=== PATIENT | male | born 1965 | race African-American/Black ===

== ENCOUNTER 2017-09-10 00:08 | Inpatient (IN) ==
[2017-09-10] MEDS ORDERED: PROMETHAZINE 25 MG TABLET PO PRN (00:14)
[2017-09-10] MEDS ORDERED: ONDANSETRON 4 MG/2 ML VIAL IV PRN (00:14)
[2017-09-10] MEDS ORDERED: ALUM/MAG/SIMETH/LIDO VISC 1:1 30 ML BOTTLE PO ONE (03:16)
[2017-09-10] MEDS: SODIUM CHLORIDE 0.9% 1,000 ML IV SCH ×2 (04:05→15:24)
[2017-09-10] MEDS: ACETAMINOPHEN 325 MG TABLET PO PRN ×3 (04:08→21:11)
[2017-09-10] MEDS: CIPROFLOXACIN INJ 400 MG in PREMIX 1 EACH IV SCH ×2 (04:09→15:24)
[2017-09-10] MEDS: LORazepam 2 MG/1 ML VIAL IV PRN (04:25)
[2017-09-10] MEDS ORDERED: ACETAMINOPHEN 650 MG SUPP RECTAL PRN (04:26)
[2017-09-10 05:22] LABS: Basophils % 0.3 % (0.0-0.8); Eosinophils # 0.5 10*3/uL (0.0-0.87); Eosinophils % 13.3 % (0.00-10.9); Hematocrit 32.2 VOL% (42.0-52.0); Hemoglobin 11.2 GM/DL (14.0-18.0); Immature Granulocytes % 0.6 %; Immature Granulocytes Absolute 0.02 #; Lymphocytes # 0.1 10*3/uL (1.4-4.0); Lymphocytes % 2.8 % (21.2-54.2); Mean Corpuscular HGB Conc 34.8 GM/DL (32-36); Mean Corpuscular Hemoglobin 32 PG (27-34); Mean Platelet Volume 9.5 FL (9.6-12.0); Monocytes # 0.1 10*3/uL (0.11-0.8); Monocytes % 2.8 % (1.7-12.7); Neutrophils # 2.8 10*3/uL (1.4-7.4); Neutrophils % 80.2 % (38.7-73.9); Platelet Count 109 T/CUMM (130-400); Red Blood Count 3.54 MC/CUMM (3.8-5.5); Red Cell Distribution Width 14.2 % (9.3-17.3); White Blood Count 3.5 T/CUMM (4-12)
[2017-09-10] MEDS ORDERED: KETOROLAC 30 MG/1 ML VIAL IM STA (05:36)
[2017-09-10 05:53] LABS: Troponin I Only 0.037 NG/ML (0.00-0.045)
[2017-09-10] MEDS ORDERED: MAGNESIUM OXIDE 400 MG TABLET PO ONE (06:03)
[2017-09-10 06:06] LABS: Albumin 2.7 G/DL (3.4-5.0); Bilirubin,Total 2.6 MG/DL (0.2-1.0); Calcium 8.3 MG/DL (8.5-10.1); Osmolality,Calculated 271.2 MOS/KG (273-304); Potassium 3.5 MMOL/L (3.5-5.1); Total Protein 6.6 G/DL (6.4-8.3)
[2017-09-10 06:09] LABS: Band Neutrophils 23 % (0-10); Hypochromasia 1+; Lymphocytes 5 % (20-55); Metamyelocytes 1 %; Microcytosis Slight; Myelocytes 1 %; Ovalocytes Slight; Platelet Estimate Decreased; Segmented Neutrophils 68 % (50-85); Total Cells Counted 100
[2017-09-10 06:10] LABS: Giant Platelets Few
[2017-09-10 07:53] LABS: Apearance,Urine CLOUDY (Clear); Bilirubin,Urine Negative (Negative); Blood, Urine Large mg/dL (Negative); Glucose,Urine (UA) Negative (Negative); Ketones,Urine 5 mg/dL (Negative); Nitrite,Urine Negative (Negative); Protein,Urine 100 MG/DL; RBC,Urine 15 /HPF (0-4); Squamous Epithelial Cell,Urine Occasional /HPF (0-10); Urine Color Yellow (Yellow); Urine Specific Gravity 1.008 (1.001-1.035); Urine Urobilinogen < 2.0 EU/DL (0.2-1.0); WBC,Urine 290 /HPF (0-6)
[2017-09-10] MEDS: hydroCHLOROthiazide 12.5 MG CAPSULE PO SCH (08:31)
[2017-09-10] MEDS: FOLIC ACID 1 MG TABLET PO SCH (08:34)
[2017-09-10] MEDS: PANTOPRAZOLE 40 MG TABLET PO SCH (08:34)
[2017-09-10] MEDS: THIAMINE 100 MG TABLET PO SCH (08:34)
[2017-09-10] MEDS: MULTIVITAMIN (CENTRUM) TABLET PO SCH (08:34)
[2017-09-10] MEDS ORDERED: amLODIPine 5 MG TABLET PO SCH (09:00)
[2017-09-10 09:37] LABS: Barbiturates Screen,Urine Negative (Negative); Benzodiazepines Screen,Urine Negative (Negative); Cannabinoid Screen,Urine Positive (Negative); Opiate Screen,Urine Negative (Negative); Phencyclidine Screen,Urine Negative (Negative)
[2017-09-10 09:42] LABS: Hepatitis A Ab IgM Quant 0.16 Index; Hepatitis A Ab IgM Result Negative (Negative); Hepatitis B Core IgM Quant 0.17 Index; Hepatitis B Core IgM Result Negative (Negative); Hepatitis B Surface Ag Quant < 0.10 Index; Hepatitis B Surface Ag Result Negative (Negative); Hepatitis C Virus Ab Result Negative (Negative)
[2017-09-10] MEDS: POTASSIUM CHLORIDE 20 MEQ TABLET PO SCH (12:18)
[2017-09-10] MEDS: MAGNESIUM OXIDE 400 MG TABLET PO SCH ×2 (15:24→21:12)
[2017-09-10 16:15] LABS: Troponin I Only 0.126 NG/ML (0.00-0.045)
[2017-09-10 18:21] LABS: Troponin I Only 0.121 NG/ML (0.00-0.045)
[2017-09-10] MEDS ORDERED: SODIUM CHLORIDE 0.9% 500 ML IV ONE ×2 (21:26→22:22)
[2017-09-10 21:58] LABS: Troponin I Only 0.157 NG/ML (0.00-0.045)
[2017-09-10] MEDS ORDERED: SODIUM CHLORIDE 0.9% 1,000 ML IV SCH (22:00)
[2017-09-10] MEDS: PIPERACILLIN/TAZOBACTAM 3,375 MG in SODIUM CHLORIDE 0.9% 100 ML IV SCH (23:35)
[2017-09-11] MEDS: SODIUM CHLORIDE 0.9% 1,000 ML IV SCH ×7 (00:20→23:15)
[2017-09-11] MEDS: NOREPINEPHRINE 8 MG in SODIUM CHLORIDE 0.9% 242 ML IV SCH ×3 (00:40→21:26)
[2017-09-11] MEDS: CIPROFLOXACIN INJ 400 MG in PREMIX 1 EACH IV SCH ×2 (04:22→17:04)
[2017-09-11 05:01] LABS: Basophils % 0.1 % (0.0-0.8); Hematocrit 29.9 VOL% (42.0-52.0); Hemoglobin 10.9 GM/DL (14.0-18.0); Immature Granulocytes % 10.1 %; Lymphocytes # 0.8 10*3/uL (1.4-4.0); Lymphocytes % 3.6 % (21.2-54.2); Mean Corpuscular HGB Conc 36.5 GM/DL (32-36); Mean Corpuscular Hemoglobin 32 PG (27-34); Mean Corpuscular Volume 88.2 FL (87-102); Mean Platelet Volume 10.4 FL (9.6-12.0); Monocytes # 1.9 10*3/uL (0.11-0.8); Monocytes % 8.2 % (1.7-12.7); Neutrophils # 17.7 10*3/uL (1.4-7.4); Platelet Count 68 T/CUMM (130-400); Red Blood Count 3.39 MC/CUMM (3.8-5.5); Red Cell Distribution Width 14.6 % (9.3-17.3); White Blood Count 22.7 T/CUMM (4-12)
[2017-09-11] MEDS ORDERED: KETOROLAC 15 MG/1 ML VIAL IV ONE (05:02)
[2017-09-11 05:29] LABS: Risk Ratio 4.75; VLDL CHOLESTEROL 40.6 MG/DL
[2017-09-11 05:31] LABS: Band Neutrophils 10 % (0-10); Burr Cells Slight; Giant Platelets Few; Hypochromasia Slight; Lymphocytes 8 % (20-55); Microcytosis Slight; Platelet Estimate Decreased; Segmented Neutrophils 74 % (50-85); Total Cells Counted 100
[2017-09-11 05:37] LABS: Albumin 2.5 G/DL (3.4-5.0); Bilirubin,Total 3.6 MG/DL (0.2-1.0); Calcium 7.5 MG/DL (8.5-10.1); Potassium 4.2 MMOL/L (3.5-5.1); Total Protein 5.9 G/DL (6.4-8.3)
[2017-09-11] MEDS ORDERED: DEXTROSE 50% 25 GM/50 ML VIAL IV PRN (06:29)
[2017-09-11] MEDS ORDERED: DEXTROSE 50% 25 GM/50 ML VIAL IV ONE (06:31)
[2017-09-11] MEDS ORDERED: HYDROmorphone 2 MG/1 ML VIAL IV ONE ×2 (07:25→08:05)
[2017-09-11] MEDS: PIPERACILLIN/TAZOBACTAM 3,375 MG in SODIUM CHLORIDE 0.9% 100 ML IV SCH ×3 (09:20→23:20)
[2017-09-11] MEDS: POTASSIUM CHLORIDE 20 MEQ TABLET PO SCH (16:00)
[2017-09-11] MEDS: MAGNESIUM OXIDE 400 MG TABLET PO SCH ×3 (16:00→21:05)
[2017-09-11] MEDS: TAMSULOSIN 0.4 MG CAPSULE PO SCH (16:00)
[2017-09-11] MEDS: FOLIC ACID 1 MG TABLET PO SCH (16:00)
[2017-09-11] MEDS: MULTIVITAMIN (CENTRUM) TABLET PO SCH (16:00)
[2017-09-11] MEDS: PANTOPRAZOLE 40 MG TABLET PO SCH (16:00)
[2017-09-11] MEDS: hydroCHLOROthiazide 12.5 MG CAPSULE PO SCH (16:00)
[2017-09-11] MEDS: THIAMINE 100 MG TABLET PO SCH (16:00)
[2017-09-11] MEDS ORDERED: SODIUM CHLORIDE 0.9% 500 ML IV ONE (16:18)
[2017-09-11] MEDS: traMADol 50 MG TABLET PO PRN (18:13)
[2017-09-11] MEDS: LORazepam 2 MG/1 ML VIAL IV PRN (21:15)
[2017-09-12] MEDS: SODIUM CHLORIDE 0.9% 1,000 ML IV SCH ×6 (04:01→19:00)
[2017-09-12] MEDS: CIPROFLOXACIN INJ 400 MG in PREMIX 1 EACH IV SCH ×2 (04:38→16:36)
[2017-09-12 05:56] LABS: Basophils # 0.2 10*3/uL (0.0-0.2); Basophils % 0.9 % (0.0-0.8); Eosinophils # 0.1 10*3/uL (0.0-0.87); Eosinophils % 0.4 % (0.00-10.9); Hematocrit 29.7 VOL% (42.0-52.0); Hemoglobin 10.4 GM/DL (14.0-18.0); Immature Granulocytes % 0.7 %; Immature Granulocytes Absolute 0.14 #; Lymphocytes # 1.1 10*3/uL (1.4-4.0); Lymphocytes % 5.7 % (21.2-54.2); Mean Corpuscular Hemoglobin 32 PG (27-34); Mean Corpuscular Volume 91.1 FL (87-102); Mean Platelet Volume 12.1 FL (9.6-12.0); Monocytes # 1.2 10*3/uL (0.11-0.8); Monocytes % 6.1 % (1.7-12.7); Neutrophils # 16.9 10*3/uL (1.4-7.4); Neutrophils % 86.2 % (38.7-73.9); Red Blood Count 3.26 MC/CUMM (3.8-5.5); Red Cell Distribution Width 15.4 % (9.3-17.3); White Blood Count 19.6 T/CUMM (4-12)
[2017-09-12 05:57] LABS: Platelet Count 64 T/CUMM (130-400)
[2017-09-12 06:21] LABS: Calcium 6.9 MG/DL (8.5-10.1); Osmolality,Calculated 290.5 MOS/KG (273-304); Potassium 4.7 MMOL/L (3.5-5.1)
[2017-09-12 06:26] LABS: Calcium 6.9 MG/DL (8.5-10.1); Osmolality,Calculated 290.5 MOS/KG (273-304); Potassium 4.6 MMOL/L (3.5-5.1); Total Protein 5.3 G/DL (6.4-8.3)
[2017-09-12] MEDS: NOREPINEPHRINE 8 MG in SODIUM CHLORIDE 0.9% 242 ML IV SCH (06:51)
[2017-09-12 07:42] LABS: Band Neutrophils 31 % (0-10); Burr Cells 2+; Eosinophils 1 % (0-10); Lymphocytes 8 % (20-55); Segmented Neutrophils 54 % (50-85); Total Cells Counted 100
[2017-09-12 07:43] LABS: Hypochromasia 2+; Platelet Estimate Decreased
[2017-09-12] MEDS: PIPERACILLIN/TAZOBACTAM 3,375 MG in SODIUM CHLORIDE 0.9% 100 ML IV SCH ×2 (08:11→16:36)
[2017-09-12] MEDS ORDERED: LIDOCAINE 2% 5 ML VIAL ONE (12:56)
[2017-09-12] MEDS ORDERED: ETOMIDATE 20 MG/10 ML VIAL IV ONE (12:56)
[2017-09-12] MEDS ORDERED: MIDAZOLAM 2 MG/2 ML VIAL ONE (13:17)
[2017-09-12] MEDS: LORazepam 2 MG/1 ML VIAL IV PRN ×2 (14:20→17:20)
[2017-09-12] MEDS: POTASSIUM CHLORIDE 20 MEQ TABLET PO SCH (14:57)
[2017-09-12] MEDS: FOLIC ACID 1 MG TABLET PO SCH (14:58)
[2017-09-12] MEDS: PANTOPRAZOLE 40 MG TABLET PO SCH (14:58)
[2017-09-12] MEDS: MAGNESIUM OXIDE 400 MG TABLET PO SCH ×3 (14:58→21:51)
[2017-09-12] MEDS: MULTIVITAMIN (CENTRUM) TABLET PO SCH (14:58)
[2017-09-12] MEDS: THIAMINE 100 MG TABLET PO SCH (14:58)
[2017-09-12] MEDS: TAMSULOSIN 0.4 MG CAPSULE PO SCH (14:58)
[2017-09-12] MEDS: hydroCHLOROthiazide 12.5 MG CAPSULE PO SCH (15:00)
[2017-09-12] MEDS ORDERED: LORazepam 2 MG/1 ML VIAL IV ONE (18:15)
[2017-09-13] MEDS: PIPERACILLIN/TAZOBACTAM 3,375 MG in SODIUM CHLORIDE 0.9% 100 ML IV SCH ×3 (00:05→15:57)
[2017-09-13] MEDS: LORazepam 2 MG/1 ML VIAL IV PRN ×5 (00:31→19:17)
[2017-09-13] MEDS: NOREPINEPHRINE 8 MG in SODIUM CHLORIDE 0.9% 242 ML IV SCH (00:34)
[2017-09-13] MEDS: SODIUM CHLORIDE 0.9% 1,000 ML IV SCH ×4 (05:00→22:00)
[2017-09-13 05:12] LABS: Basophils # 0.1 10*3/uL (0.0-0.2); Basophils % 0.5 % (0.0-0.8); Eosinophils # 0.2 10*3/uL (0.0-0.87); Eosinophils % 1.3 % (0.00-10.9); Hematocrit 28.9 VOL% (42.0-52.0); Hemoglobin 10.1 GM/DL (14.0-18.0); Immature Granulocytes % 1.6 %; Immature Granulocytes Absolute 0.27 #; Lymphocytes # 1.6 10*3/uL (1.4-4.0); Lymphocytes % 9.1 % (21.2-54.2); Mean Corpuscular HGB Conc 34.9 GM/DL (32-36); Mean Corpuscular Hemoglobin 32 PG (27-34); Mean Corpuscular Volume 90.6 FL (87-102); Mean Platelet Volume 11.5 FL (9.6-12.0); Monocytes # 1.4 10*3/uL (0.11-0.8); Monocytes % 7.9 % (1.7-12.7); Neutrophils # 13.9 10*3/uL (1.4-7.4); Neutrophils % 79.6 % (38.7-73.9); Platelet Count 78 T/CUMM (130-400); Red Blood Count 3.19 MC/CUMM (3.8-5.5); Red Cell Distribution Width 15.4 % (9.3-17.3); White Blood Count 17.4 T/CUMM (4-12)
[2017-09-13 05:44] LABS: Magnesium 2.1 MG/DL (1.8-2.4); Potassium 4.7 MMOL/L (3.5-5.1)
[2017-09-13 05:47] LABS: Albumin 1.9 G/DL (3.4-5.0); Bilirubin,Total 3.6 MG/DL (0.2-1.0); Calcium 7.8 MG/DL (8.5-10.1); Potassium 4.7 MMOL/L (3.5-5.1); Total Protein 5.2 G/DL (6.4-8.3)
[2017-09-13 06:14] LABS: Band Neutrophils 4 % (0-10); Lymphocytes 9 % (20-55); Platelet Estimate Decreased; Segmented Neutrophils 79 % (50-85); Total Cells Counted 100
[2017-09-13 06:15] LABS: Hypochromasia 1+; Microcytosis Slight
[2017-09-13] MEDS: THIAMINE 100 MG TABLET PO SCH (08:08)
[2017-09-13] MEDS: hydroCHLOROthiazide 12.5 MG CAPSULE PO SCH (08:08)
[2017-09-13] MEDS: POTASSIUM CHLORIDE 20 MEQ TABLET PO SCH (08:08)
[2017-09-13] MEDS: TAMSULOSIN 0.4 MG CAPSULE PO SCH (08:08)
[2017-09-13] MEDS: PANTOPRAZOLE 40 MG TABLET PO SCH (08:08)
[2017-09-13] MEDS: MAGNESIUM OXIDE 400 MG TABLET PO SCH ×3 (08:09→20:52)
[2017-09-13] MEDS: MULTIVITAMIN (CENTRUM) TABLET PO SCH (08:09)
[2017-09-13] MEDS: FOLIC ACID 1 MG TABLET PO SCH (08:09)
[2017-09-13] MEDS ORDERED: DIAZEPAM 10 MG/2 ML SYRINGE IV PRN (20:27)
[2017-09-13] MEDS: DIAZEPAM 10 MG/2 ML SYRINGE IV PRN (20:47)
[2017-09-14] MEDS: NOREPINEPHRINE 8 MG in SODIUM CHLORIDE 0.9% 242 ML IV SCH ×2 (00:48→23:51)
[2017-09-14] MEDS: PIPERACILLIN/TAZOBACTAM 3,375 MG in SODIUM CHLORIDE 0.9% 100 ML IV SCH ×4 (00:48→23:29)
[2017-09-14] MEDS: LORazepam 2 MG/1 ML VIAL IV PRN ×4 (01:26→21:05)
[2017-09-14] MEDS: DIAZEPAM 10 MG/2 ML SYRINGE IV PRN ×4 (01:42→23:29)
[2017-09-14 05:22] LABS: Calcium 8.6 MG/DL (8.5-10.1); Osmolality,Calculated 294.8 MOS/KG (273-304); Potassium 4.7 MMOL/L (3.5-5.1)
[2017-09-14] MEDS: SODIUM CHLORIDE 0.9% 1,000 ML IV SCH ×2 (08:00→22:23)
[2017-09-14] MEDS ORDERED: amLODIPine 5 MG TABLET PO SCH (09:00)
[2017-09-14] MEDS: hydroCHLOROthiazide 12.5 MG CAPSULE PO SCH (11:25)
[2017-09-14] MEDS: THIAMINE 100 MG TABLET PO SCH (11:25)
[2017-09-14] MEDS: TAMSULOSIN 0.4 MG CAPSULE PO SCH (11:26)
[2017-09-14] MEDS: MULTIVITAMIN (CENTRUM) TABLET PO SCH (11:26)
[2017-09-14] MEDS: PANTOPRAZOLE 40 MG TABLET PO SCH (11:26)
[2017-09-14] MEDS: POTASSIUM CHLORIDE 20 MEQ TABLET PO SCH (11:26)
[2017-09-14] MEDS: MAGNESIUM OXIDE 400 MG TABLET PO SCH ×4 (11:26→21:08)
[2017-09-14] MEDS: FOLIC ACID 1 MG TABLET PO SCH (11:26)
[2017-09-15] MEDS: LORazepam 2 MG/1 ML VIAL IV PRN (00:50)
[2017-09-15 07:37] LABS: Basophils # 0.1 10*3/uL (0.0-0.2); Basophils % 0.6 % (0.0-0.8); Eosinophils # 0.2 10*3/uL (0.0-0.87); Hematocrit 36.2 VOL% (42.0-52.0); Hemoglobin 12.8 GM/DL (14.0-18.0); Lymphocytes # 1.9 10*3/uL (1.4-4.0); Lymphocytes % 9.6 % (21.2-54.2); Mean Corpuscular HGB Conc 35.4 GM/DL (32-36); Mean Corpuscular Hemoglobin 31 PG (27-34); Mean Corpuscular Volume 88.1 FL (87-102); Mean Platelet Volume 11.7 FL (9.6-12.0); Monocytes # 2.8 10*3/uL (0.11-0.8); Monocytes % 13.9 % (1.7-12.7); Neutrophils # 14.5 10*3/uL (1.4-7.4); Neutrophils % 72.9 % (38.7-73.9); Platelet Count 145 T/CUMM (130-400); Red Blood Count 4.11 MC/CUMM (3.8-5.5); Red Cell Distribution Width 15.2 % (9.3-17.3)
[2017-09-15 07:43] LABS: Calcium 9.2 MG/DL (8.5-10.1); Magnesium 1.2 MG/DL (1.8-2.4); Osmolality,Calculated 294.7 MOS/KG (273-304); Potassium 4.3 MMOL/L (3.5-5.1)
[2017-09-15 07:53] LABS: Calcium 9.1 MG/DL (8.5-10.1); Osmolality,Calculated 292.8 MOS/KG (273-304); Potassium 4.3 MMOL/L (3.5-5.1)
[2017-09-15 08:11] LABS: Eosinophils 2 % (0-10); Lymphocytes 12 % (20-55); Macrocytosis 1+; Platelet Estimate Adequate; Polychromasia Slight; Segmented Neutrophils 75 % (50-85); Target Cells Slight; Total Cells Counted 100
[2017-09-15] MEDS ORDERED: LISINOPRIL 10 MG TABLET PO SCH (09:00)
[2017-09-15] MEDS ORDERED: amLODIPine 10 MG TABLET PO SCH (09:00)
[2017-09-15] MEDS: TAMSULOSIN 0.4 MG CAPSULE PO SCH (09:07)
[2017-09-15] MEDS: hydroCHLOROthiazide 12.5 MG CAPSULE PO SCH (09:07)
[2017-09-15] MEDS: MULTIVITAMIN (CENTRUM) TABLET PO SCH (09:07)
[2017-09-15] MEDS: FOLIC ACID 1 MG TABLET PO SCH (09:07)
[2017-09-15] MEDS: MAGNESIUM OXIDE 400 MG TABLET PO SCH (09:08)
[2017-09-15] MEDS: POTASSIUM CHLORIDE 20 MEQ TABLET PO SCH (09:08)
[2017-09-15] MEDS: THIAMINE 100 MG TABLET PO SCH (09:09)
[2017-09-15] MEDS: PANTOPRAZOLE 40 MG TABLET PO SCH (09:09)
[2017-09-15] MEDS: PIPERACILLIN/TAZOBACTAM 3,375 MG in SODIUM CHLORIDE 0.9% 100 ML IV SCH (09:09)
[2017-09-15] MEDS: traMADol 50 MG TABLET PO PRN (12:39)
[2017-09-15 13:53] VITALS: BP 139/95
[2017-09-15] MEDS: SODIUM CHLORIDE 0.9% 1,000 ML IV SCH (13:56)
== END 2017-09-15 13:58 | disposition home or self-care (01) | DRG 871 ==
LOC: N.TELEN → SUATTDRO 02:07 → OBSVTOIN 02:07 → N.TELEN 03:11 → N.CC 09-11 00:01 → N.2E 09-14 15:12
PROVIDERS: ADMIT Internal Medicine

== ENCOUNTER 2017-09-16 13:23 | Inpatient (IN) ==
[2017-09-16 14:37] LABS: Basophils # 0.1 10*3/uL (0.0-0.2); Basophils % 0.5 % (0.0-0.8); Eosinophils # 0.3 10*3/uL (0.0-0.87); Eosinophils % 1.5 % (0.00-10.9); Hematocrit 34.9 VOL% (42.0-52.0); Hemoglobin 12.6 GM/DL (14.0-18.0); Immature Granulocytes % 2.5 %; Immature Granulocytes Absolute 0.43 #; Lymphocytes % 11.7 % (21.2-54.2); Mean Corpuscular HGB Conc 36.1 GM/DL (32-36); Mean Corpuscular Hemoglobin 32 PG (27-34); Mean Corpuscular Volume 87.7 FL (87-102); Mean Platelet Volume 10.5 FL (9.6-12.0); Monocytes # 2.4 10*3/uL (0.11-0.8); Monocytes % 13.6 % (1.7-12.7); Neutrophils # 12.3 10*3/uL (1.4-7.4); Neutrophils % 70.2 % (38.7-73.9); Platelet Count 264 T/CUMM (130-400); Red Blood Count 3.98 MC/CUMM (3.8-5.5); White Blood Count 17.5 T/CUMM (4-12)
[2017-09-16 15:00] LABS: Albumin 2.5 G/DL (3.4-5.0); Bilirubin,Total 1.3 MG/DL (0.2-1.0); Calcium 8.6 MG/DL (8.5-10.1); Magnesium 1.3 MG/DL (1.8-2.4); Osmolality,Calculated 273.8 MOS/KG (273-304); Potassium 3.8 MMOL/L (3.5-5.1); Total Protein 6.7 G/DL (6.4-8.3)
[2017-09-16 15:48] LABS: Apearance,Urine CLEAR (Clear); Bilirubin,Urine Negative (Negative); Blood, Urine Large mg/dL (Negative); Glucose,Urine (UA) Negative (Negative); Ketones,Urine Negative (Negative); Mucus,Urine Occasional /LPF (Occasional); Nitrite,Urine Negative (Negative); Protein,Urine Negative; RBC,Urine 9 /HPF (0-4); Urine Color Yellow (Yellow); Urine Specific Gravity 1.008 (1.001-1.035); Urine Urobilinogen < 2.0 EU/DL (0.2-1.0); WBC,Urine 14 /HPF (0-6)
[2017-09-16] MEDS ORDERED: LORazepam 2 MG/1 ML VIAL IV PRN (16:16)
[2017-09-16] MEDS ORDERED: ONDANSETRON 4 MG/2 ML VIAL IV PRN (16:16)
[2017-09-16 16:35] LABS: Triglycerides 173 MG/DL (2-150)
[2017-09-16] MEDS: FAMOTIDINE 20 MG/2 ML VIAL IV SCH (19:31)
[2017-09-16] MEDS: SODIUM CHLORIDE 0.9% 1,000 ML IV SCH (19:36)
[2017-09-16] MEDS: CIPROFLOXACIN INJ 400 MG in PREMIX 1 EACH IV SCH (19:36)
[2017-09-16] MEDS: metroNIDAZOLE INJ 500 MG in PREMIX 1 EACH IV SCH (21:46)
[2017-09-17] MEDS: SODIUM CHLORIDE 0.9% 1,000 ML IV SCH ×4 (00:13→19:08)
[2017-09-17 05:10] LABS: Basophils % 0.3 % (0.0-0.8); Eosinophils # 0.3 10*3/uL (0.0-0.87); Eosinophils % 2.1 % (0.00-10.9); Hematocrit 29.7 VOL% (42.0-52.0); Hemoglobin 10.5 GM/DL (14.0-18.0); Immature Granulocytes % 2.5 %; Immature Granulocytes Absolute 0.35 #; Lymphocytes # 1.9 10*3/uL (1.4-4.0); Lymphocytes % 13.3 % (21.2-54.2); Mean Corpuscular HGB Conc 35.4 GM/DL (32-36); Mean Corpuscular Hemoglobin 31 PG (27-34); Mean Corpuscular Volume 87.9 FL (87-102); Mean Platelet Volume 10.2 FL (9.6-12.0); Monocytes # 1.9 10*3/uL (0.11-0.8); Monocytes % 13.7 % (1.7-12.7); Neutrophils # 9.5 10*3/uL (1.4-7.4); Neutrophils % 68.1 % (38.7-73.9); Platelet Count 270 T/CUMM (130-400); Red Blood Count 3.38 MC/CUMM (3.8-5.5); Red Cell Distribution Width 14.6 % (9.3-17.3); White Blood Count 13.9 T/CUMM (4-12)
[2017-09-17] MEDS: metroNIDAZOLE INJ 500 MG in PREMIX 1 EACH IV SCH ×2 (05:20→12:06)
[2017-09-17 05:49] LABS: Albumin 2.1 G/DL (3.4-5.0); Bilirubin,Total 1.1 MG/DL (0.2-1.0); Calcium 7.9 MG/DL (8.5-10.1); Magnesium 1.2 MG/DL (1.8-2.4); Osmolality,Calculated 277.5 MOS/KG (273-304); Potassium 3.6 MMOL/L (3.5-5.1); Total Protein 5.7 G/DL (6.4-8.3)
[2017-09-17] MEDS: FAMOTIDINE 20 MG/2 ML VIAL IV SCH ×2 (10:49→20:41)
[2017-09-17] MEDS: THIAMINE 200 MG/2 ML VIAL IV SCH (10:49)
[2017-09-17] MEDS: CIPROFLOXACIN INJ 400 MG in PREMIX 1 EACH IV SCH (10:49)
[2017-09-17] MEDS: HYDROmorphone 2 MG/1 ML VIAL IV PRN ×2 (13:10→20:42)
[2017-09-17] MEDS ORDERED: LEVOFLOXACIN INJ 500 MG in PREMIX 1 EACH IV ONE (15:13)
[2017-09-17] MEDS: amLODIPine 10 MG TABLET PO SCH (16:16)
[2017-09-18] MEDS: SODIUM CHLORIDE 0.9% 1,000 ML IV SCH ×7 (00:01→20:29)
[2017-09-18 06:12] LABS: Basophils % 0.4 % (0.0-0.8); Eosinophils # 0.3 10*3/uL (0.0-0.87); Hematocrit 29.9 VOL% (42.0-52.0); Hemoglobin 10.5 GM/DL (14.0-18.0); Immature Granulocytes % 1.4 %; Immature Granulocytes Absolute 0.13 #; Lymphocytes # 1.3 10*3/uL (1.4-4.0); Lymphocytes % 13.3 % (21.2-54.2); Mean Corpuscular HGB Conc 35.1 GM/DL (32-36); Mean Corpuscular Hemoglobin 31 PG (27-34); Mean Corpuscular Volume 88.7 FL (87-102); Mean Platelet Volume 10.2 FL (9.6-12.0); Monocytes # 1.2 10*3/uL (0.11-0.8); Monocytes % 12.1 % (1.7-12.7); Neutrophils # 6.7 10*3/uL (1.4-7.4); Neutrophils % 69.8 % (38.7-73.9); Platelet Count 323 T/CUMM (130-400); Red Blood Count 3.37 MC/CUMM (3.8-5.5); Red Cell Distribution Width 14.5 % (9.3-17.3); White Blood Count 9.6 T/CUMM (4-12)
[2017-09-18 06:42] LABS: Albumin 2.2 G/DL (3.4-5.0); Bilirubin,Total 1.1 MG/DL (0.2-1.0); Calcium 8.5 MG/DL (8.5-10.1); Osmolality,Calculated 278.3 MOS/KG (273-304); Potassium 3.5 MMOL/L (3.5-5.1); Total Protein 6.1 G/DL (6.4-8.3)
[2017-09-18] MEDS: amLODIPine 10 MG TABLET PO SCH (09:23)
[2017-09-18] MEDS: FAMOTIDINE 20 MG/2 ML VIAL IV SCH ×2 (09:24→20:26)
[2017-09-18] MEDS: THIAMINE 200 MG/2 ML VIAL IV SCH (09:24)
[2017-09-18] MEDS: HYDROmorphone 2 MG/1 ML VIAL IV PRN ×3 (10:55→20:27)
[2017-09-18] MEDS ORDERED: MAGNESIUM SULF RIDER 4 GM in PREMIX 1 EACH IV PRN (15:00)
[2017-09-18] MEDS ORDERED: LEVOFLOXACIN INJ 250 MG in PREMIX 1 EACH IV SCH (15:30)
[2017-09-18] MEDS: MAGNESIUM SULF RIDER 2 GM in PREMIX 1 EACH IV PRN ×2 (16:20→18:27)
[2017-09-19] MEDS: HYDROmorphone 2 MG/1 ML VIAL IV PRN ×2 (00:36→09:11)
[2017-09-19] MEDS: SODIUM CHLORIDE 0.9% 1,000 ML IV SCH ×5 (01:26→21:39)
[2017-09-19 05:28] LABS: Basophils # 0.1 10*3/uL (0.0-0.2); Basophils % 0.7 % (0.0-0.8); Eosinophils # 0.3 10*3/uL (0.0-0.87); Eosinophils % 3.4 % (0.00-10.9); Hematocrit 30.4 VOL% (42.0-52.0); Hemoglobin 10.7 GM/DL (14.0-18.0); Immature Granulocytes % 1.1 %; Lymphocytes # 1.4 10*3/uL (1.4-4.0); Mean Corpuscular HGB Conc 35.2 GM/DL (32-36); Mean Corpuscular Hemoglobin 31 PG (27-34); Mean Corpuscular Volume 88.6 FL (87-102); Mean Platelet Volume 10.6 FL (9.6-12.0); Monocytes # 0.9 10*3/uL (0.11-0.8); Monocytes % 10.1 % (1.7-12.7); Neutrophils # 6.1 10*3/uL (1.4-7.4); Neutrophils % 68.7 % (38.7-73.9); Platelet Count 367 T/CUMM (130-400); Red Blood Count 3.43 MC/CUMM (3.8-5.5); Red Cell Distribution Width 14.5 % (9.3-17.3); White Blood Count 8.8 T/CUMM (4-12)
[2017-09-19 05:59] LABS: Calcium 8.4 MG/DL (8.5-10.1); Osmolality,Calculated 275.4 MOS/KG (273-304); Potassium 3.7 MMOL/L (3.5-5.1)
[2017-09-19] MEDS ORDERED: DEXTROSE 50% 25 GM/50 ML VIAL IV PRN (06:11)
[2017-09-19] MEDS: amLODIPine 10 MG TABLET PO SCH (08:52)
[2017-09-19] MEDS: FAMOTIDINE 20 MG/2 ML VIAL IV SCH ×2 (08:52→21:35)
[2017-09-19] MEDS: THIAMINE 200 MG/2 ML VIAL IV SCH (08:53)
[2017-09-20] MEDS: SODIUM CHLORIDE 0.9% 1,000 ML IV SCH ×2 (02:21→07:06)
[2017-09-20 08:48] VITALS: BP 175/84
[2017-09-20] MEDS ORDERED: LEVOFLOXACIN 250 MG TABLET PO SCH (09:00)
[2017-09-20] MEDS: THIAMINE 200 MG/2 ML VIAL IV SCH (09:53)
[2017-09-20] MEDS: amLODIPine 10 MG TABLET PO SCH (09:53)
[2017-09-20] MEDS: FAMOTIDINE 20 MG/2 ML VIAL IV SCH (09:54)
== END 2017-09-20 12:28 | disposition home or self-care (01) | DRG 438 ==
LOC: EDUNIT# → N.ED 13:23 → N.EDINP 15:45 → N.TELES 17:48
PROVIDERS: ADMIT Internal Medicine; ATTEND Internal Medicine